=== PATIENT | female | born 2000 | race Hispanic/Latino ===

== ENCOUNTER 2022-06-21 11:32 | Emergency (ER) | payer MEDICAID | END 2022-06-21 12:39 | disposition home or self-care (01) | LOC: CSHERS 11:32 | DX: S63.612A Unspecified sprain of right middle finger, initial encounter (principal); X50.9XXA Other and unspecified overexertion or strenuous movements or postures, initial encounter; Y93.67 Activity, basketball ==

== ENCOUNTER 2022-07-03 10:51 | Emergency (ER) | payer MEDICAID | END 2022-07-03 13:02 | disposition left against medical advice (07) | LOC: CSHERS 10:51 | DX: Z53.21 Procedure and treatment not carried out due to patient leaving prior to being seen by health care provider (principal) ==

== ENCOUNTER 2022-07-09 14:43 | Emergency (ER) | payer MEDICAID | END 2022-07-09 16:37 | disposition home or self-care (01) | LOC: CSHERS 14:43 | DX: M79.644 Pain in right finger(s) (principal) ==

== ENCOUNTER 2025-03-10 07:57 | Emergency (ER) | payer BC, MEDICAID ==
[2025-03-10] MEDS ORDERED: Acetaminophen 500 MG TAB ONE (09:12)
[2025-03-10] MEDS ORDERED: Naproxen 500 MG TAB ONE (09:13)
== END 2025-03-10 09:33 | disposition home or self-care (01) ==
LOC: CSHERS 07:57
DX: J10.89 Influenza due to other identified influenza virus with other manifestations (principal); B34.9 Viral infection, unspecified
CPT/HCPCS: 87428; 99283